=== PATIENT | female | born 1970 | race Caucasian/White ===

== ENCOUNTER 2021-10-13 15:27 | Inpatient (IN) | payer OTHER ==
[2021-10-13 17:31] VITALS: BMI 36.3
[2021-10-13] MEDS ORDERED: chlordiazePOXIDE HCL 25 MG CAPSULE PO PRN (17:40)
[2021-10-13] MEDS ORDERED: hydrOXYzine PAMOATE 25 MG CAPSULE (FP) PO PRN (17:41)
[2021-10-13] MEDS ORDERED: ONDANSETRON *ODT* 4 MG TABLET SL PRN (17:42)
[2021-10-13] MEDS ORDERED: IBUPROFEN 600 MG TABLET (FP) PO PRN (17:42)
[2021-10-13] MEDS ORDERED: BENZOCAINE/MENTHOL (CHLORASEPTIC ) LOZENGE MM PRN (17:42)
[2021-10-13] MEDS ORDERED: MAGNESIUM CITRATE 300 ML BOTTLE PO PRN (17:42)
[2021-10-13] MEDS ORDERED: LOPERAMIDE HCL 2 MG CAPSULE PO PRN (17:42)
[2021-10-13] MEDS ORDERED: BISMUTH SUBSALICYLATE 524 MG/30 ML PO PRN (17:42)
[2021-10-13] MEDS ORDERED: DICYCLOMINE HCL 10 MG CAPSULE PO PRN (17:42)
[2021-10-13] MEDS ORDERED: IBUPROFEN 400 MG TABLET (FP) PO PRN (17:42)
[2021-10-13] MEDS ORDERED: METHOCARBAMOL 500 MG TABLET PO PRN (17:42)
[2021-10-13] MEDS ORDERED: MAG HYDROX/AL HYDROX/SIMETH 30 ML UNIT-DOSE CUP PO PRN (17:42)
[2021-10-13] MEDS ORDERED: MAGNESIUM HYDROX 2400MG/30ML ORAL SUSPENSION 30 ML CUP PO PRN (17:42)
[2021-10-13] MEDS ORDERED: ACETAMINOPHEN 325 MG TABLET (FP) PO PRN ×2 (17:42)
[2021-10-13 19:55] VITALS: BP 169/108; PULSE 103; TEMP 97.9
[2021-10-13] MEDS ORDERED: METOPROLOL TARTRATE 25 MG TABLET (FP) PO ONE (20:27)
[2021-10-13] MEDS ORDERED: THIAMINE HCL 100 MG TABLET (FP) PO SCH (22:00)
[2021-10-13] MEDS ORDERED: MELATONIN 5 MG TABLETS PO SCH (22:00)
[2021-10-13] MEDS ORDERED: chlordiazePOXIDE HCL 25 MG CAPSULE PO SCH (23:00)
[2021-10-14] MEDS ORDERED: NICOTINE 14 MG/24 HOURS TOPICAL PATCH TD SCH (10:00)
[2021-10-14] MEDS ORDERED: PRENATAL VITAMINS W/ FOLIC ACID TABLET (FP) PO SCH (10:00)
[2021-10-14] MEDS ORDERED: RIVAROXABAN 20 MG TABLET PO SCH (18:00)
[2021-10-15] MEDS ORDERED: chlordiazePOXIDE HCL 25 MG CAPSULE PO SCH (05:00)
[2021-10-16] MEDS ORDERED: chlordiazePOXIDE HCL 10 MG CAPSULE PO PRN
[2021-10-16] MEDS ORDERED: chlordiazePOXIDE HCL 10 MG CAPSULE PO SCH (05:00)
[2021-10-17] MEDS ORDERED: chlordiazePOXIDE HCL 10 MG CAPSULE PO SCH (05:00)
[2021-10-18] MEDS ORDERED: chlordiazePOXIDE HCL 10 MG CAPSULE PO ONE (05:00)
== END 2021-10-13 21:03 | disposition left against medical advice (07) | DRG 894 ==
LOC: YASAS 15:27 → Y6N 18:33
PROVIDERS: ADMIT Allergy & Immunology; ATTEND Surgery
PROC: HZ2ZZZZ Detoxification Services for Substance Abuse Treatment (ICD-10-PCS; principal; 2021-10-13)
DX: F10.230 Alcohol dependence with withdrawal, uncomplicated (principal); F14.20 Cocaine dependence, uncomplicated; F17.210 Nicotine dependence, cigarettes, uncomplicated; F32.A Depression, unspecified; I10 Essential (primary) hypertension; E66.9 Obesity, unspecified; Z68.36 Body mass index [BMI] 36.0-36.9, adult; Z86.718 Personal history of other venous thrombosis and embolism
CPT/HCPCS: 81025; C9803-CS; U0003; U0005